=== PATIENT | male | born 1960 | race Caucasian/White ===

== ENCOUNTER 2020-10-22 12:44 | Outpatient (CLI) | payer OTHER | END 2020-10-22 12:45 | disposition home or self-care (01) | LOC: CSHRAD 12:44 | PROVIDERS: ATTEND Family Medicine Sports Medicine | DX: R06.00 Dyspnea, unspecified (principal) | CPT/HCPCS: 71046 ==

== ENCOUNTER 2020-10-24 16:51 | Outpatient (CLI) | payer OTHER ==
[2020-10-25 00:43] LABS: SARS-CoV-2 PCR by NAA Not Detected (NotDetected)
== END 2020-10-24 16:52 | disposition home or self-care (01) ==
LOC: CSHLAB 16:51
PROVIDERS: ATTEND Specialist
DX: Z20.822 Contact with and (suspected) exposure to COVID-19 (principal)
CPT/HCPCS: 87635; U0003; U0005